=== PATIENT | female | born 1965 | race American Indian/Alaskan Native ===

== ENCOUNTER 2016-12-23 10:57 | Outpatient (CLI) | payer MEDICAID ==
--- NOTE | 2016-12-23 13:15 | Mammography Report ---
BILATERAL MAMMOGRAM with CAD: HISTORY: Cancer screening. Comparison is made to a study on December 11, 2014. FINDINGS: The breast tissue is heterogeneously dense, which could obscure detection of small masses (approximately 50%-75% glandular). No mass, distortion, suspicious calcification, or skin change is seen. IMPRESSION: Negative mammogram. There is no mammographic evidence of malignancy. RECOMMENDATION: Follow-up per ACS guidelines. BI-RADS CATEGORY: 1 = Negative ACR BI-RADS MAMMOGRAPHIC CODES: 0 = Needs additional imaging evaluation; 1 = Negative; 2 = Benign; 3 = Probably benign; 4 = Suspicious; 5 = Malignant; 6 = Known biopsy-proven malignancy COMMENT: 1. Dense breast tissue, i.e., adenosis, fibrocystic changes, etc., may obscure an underlying neoplasm. 2. Approximately 10% of cancers are not detected with mammography. 3. A negative mammography report should not delay biopsy if a clinically suspicious mass is present. COMMENT: Patient follow-up letters are generated in [employer].
== END 2016-12-23 10:58 | disposition home or self-care (01) ==
LOC: SPVWC 10:57
PROVIDERS: ATTEND Internal Medicine Hematology & Oncology
DX: Z12.31 Encounter for screening mammogram for malignant neoplasm of breast (principal)
CPT/HCPCS: 77067; G0202

== ENCOUNTER 2017-03-04 08:51 | Emergency (ER) | payer MEDICAID ==
--- NOTE | 2017-03-04 09:42 | Emergency Department Report ---
HPI - General Chief Complaint: Upper Respiratory Infection Time Seen by Provider: 03/04/17 09:06 - HPI HPI: She is a 51-year-old female presents complaining of intermittent in dry cough that started 02/23/2017 is now resolved . Patient states she's been taking cough medicine and has given her some relief. Patient complains of left flank pain. Patient states pain is intermittently comes and goes as event for the past several months. Patient states she has been neglecting the pain. Patient states pain in March, so twice a month and is a throbbing pain, localized to lower to mid back left side. Patient states she does not have a primary care physician. Patient denies fever/chills/nausea/vomiting/dysuria/chest pain/shortness of breath/vaginal discharge/vaginal bleeding ED Past Medical Hx - Past Medical History Previous Medical History?: Yes Hx of Cancer: Yes (skin) Additional medical history: Anxiety, Chemotherapy - Surgical History Past Surgical History?: Yes Additional Surgical History: Removal of skin cancer - Social History Smoking Status: Never Smoker Substance Use Type: Prescribed - Medications Home Medications: Home Medications Medication Instructions Recorded Confirmed Last Taken Type Cyclobenzaprine HCl [Flexeril 5 MG 5 mg PO QHS #14 tablet 03/04/17 Unknown Rx TAB] Ibuprofen [Motrin] 600 mg PO Q8H PRN #30 tablet 03/04/17 Unknown Rx guaiFENesin [Robitussin] 200 mg PO Q6HR #12 tablet 03/04/17 Unknown Rx ED Review of Systems ROS: Stated complaint: COUGHING / RAPID HEART RATE Other details as noted in HPI Constitutional: denies: chills, fever Eyes: denies: eye pain, eye discharge, vision change ENT: denies: ear pain, throat pain Respiratory: denies: cough, shortness of breath, wheezing Cardiovascular: denies: chest pain, palpitations Endocrine: no symptoms reported Gastrointestinal: denies: abdominal pain, nausea, diarrhea Genitourinary: denies: urgency, dysuria, discharge Musculoskeletal: denies: back pain, joint swelling, arthralgia Skin: denies: rash, lesions Neurological: denies: headache, weakness, paresthesias Psychiatric: denies: anxiety, depression Hematological/Lymphatic: denies: easy bleeding, easy bruising Physical Exam - Physical Exam Vital Signs: Vital Signs 03/04/17 08:58 Temperature 97.5 F L Pulse Rate 71 Respiratory 18 Rate Blood Pressure 131/73 O2 Sat by Pulse 100 Oximetry Physical Exam: GENERAL: Alert and oriented x3, no apparent distress, Normal Gait, atraumatic. HEAD: Head is normocephalic and a-traumatic. NECK: Supple. Non edematous, No carotid bruits. No lymphadenopathy or thyromegaly. LUNGS: Symetrical with respiration, No wheezing, no rales or crackles, CTAB. HEART: S1, S2 present, regular rate and rhythm without murmur, no rubs, no gallops. ABDOMEN: No organomegaly was noted,Positive bowel sounds, soft, and non- distended. . Nontender to palpation on all Quadrants, NO CVA tenderness. NEUROLOGIC: No focal Deficit, Cranial nerves II through XII are grossly intact. No loss of sensation, No facial droop, Negative rhomberg. PSYCHIATRIC: Mood is congruent with affect, denies suicidal or homicidal ideations. SKIN: Warm and dry, No lesions, No ulceration or induration present. ED Course Vital Signs 03/04/17 08:58 Temperature 97.5 F L Pulse Rate 71 Respiratory 18 Rate Blood Pressure 131/73 O2 Sat by Pulse 100 Oximetry ED Medical Decision Making - Lab Data Result diagrams: 03/04/17 09:47 03/04/17 09:47 - Medical Decision Making 51-year-old female presents with bronchitis and intermittent back pain. ED course: CBC, BMP, UA, UPT ordered. All labs within normal limits. Discussed labs results the patient. Discussed mildly elevated glucose. Discussed the patient will follow-up with a clicker operator as referred for STD screening and woman health exam. Discussed with patient follow-up with family care doctor for further management and follow-up. Vital signs are stable. Patient is in no acute or respiratory distress. Patient has no acute symptoms. Patient understands all instructions given today and complies to follow-up with necessary providers. - Differential Diagnosis 1 bronchitis 2. UTI 3. Myalgia 4.URI Critical care attestation.: If time is entered above; I have spent that time in minutes in the direct care of this critically ill patient, excluding procedure time. ED Disposition Clinical Impression: Bronchitis, Myalgia Disposition: DISCHARGED TO HOME OR SELFCARE Is pt being admited?: No Does the pt Need Aspirin: No Condition: Stable Instructions: Chronic Bronchitis (ED), Trigger Point Pain (ED), Musculoskeletal Pain (ED) Prescriptions: Cyclobenzaprine HCl [Flexeril 5 MG TAB] 5 mg PO QHS #14 tablet guaiFENesin [Robitussin] 200 mg PO Q6HR #12 tablet Ibuprofen [Motrin] 600 mg PO Q8H PRN #30 tablet PRN Reason: Pain Referrals: PRIMARY CARE, [Primary Care Provider] - 3-5 Days NENO LUNA MD [Referring] - 3-5 Days DOTTIE GARCIA MD [Referring] - 3-5 Days MUSTAPHA JIMENES MD [Referring] - 3-5 Days PADMINI MARTIN MD [Referring] - 3-5 Days [facility] [Outside] - 3-5 Days [facility] [Outside] - 3-5 Days [facility] [Outside] - 3-5 Days Forms: Work/School Release Form(ED) Time of Disposition: 10:48
[2017-03-04 09:53] LABS: Bilirubin,Urine NEG (Negative); Blood,Urine NEG (Negative); Ketones,Urine NEG (Negative); Leukocyte Esterase,Urine NEG (Negative); Mucus,Urine FEW /HPF; Nitrite,Urine NEG (Negative); Protein,Urine <15 mg/dL mg/dL (Negative); Urobilinogen,Urine < 2.0 mg/dL (<2.0)
[2017-03-04 09:56] LABS: Hematocrit 36.7 % (30.3-42.9); Hemoglobin 11.3 gm/dl (10.1-14.3); Mean Corpuscular HGB Conc 31 % (30-34); Mean Corpuscular Hemoglobin 26 pg (28-32); Mean Corpuscular Volume 83 fl (79-97); Platelet Count 227 K/mm3 (140-440); Red Blood Count 4.41 M/mm3 (3.65-5.03); Red Cell Distribution Width 13.3 % (13.2-15.2); White Blood Count 4.6 K/mm3 (4.5-11.0)
[2017-03-04 10:15] LABS: Anion Gap 16 mmol/L; BUN/Creatinine Ratio 12.85; Blood Urea Nitrogen 9 mg/dL (7-17); Calcium 8.7 mg/dL (8.4-10.2); Carbon Dioxide 27 mmol/L (22-30); Chloride 101.6 mmol/L (98-107); Glucose 118 mg/dL (65-100); Potassium 4.1 mmol/L (3.6-5.0); Sodium 140 mmol/L (137-145)
[2017-03-04 11:07] VITALS: BP 128/74
== END 2017-03-04 11:07 | disposition home or self-care (01) ==
LOC: ED 08:51
DX: J40 Bronchitis, not specified as acute or chronic (principal); M79.1 Myalgia; Z85.828 Personal history of other malignant neoplasm of skin
CPT/HCPCS: 36415; 80048; 81001; 81025; 85027; 99283

== ENCOUNTER 2018-12-24 08:43 | Outpatient (CLI) | payer MEDICAID ==
--- NOTE | 2019-01-25 15:53 | Magnetic Resonance Report ---
FINAL REPORT Bilateral Breast MRI with and without contrast History: Breast cancer. Technique: Axial T1, axial T2 fat sat, axial DWI, sagittal T2 bilateral, axial dynamic imaging before and after 15 cc of MultiHance administration. Subtraction images were obtained. Comparisons: 12/23/2016, 09/27/2018 and 10/26/2018. No pathology reports have been submitted. Breast composition: Heterogeneously dense. Background parenchymal enhancement: Mild. Findings: Right breast: No suspicious enhancement is seen in the right breast. The right axilla is unremarkable . Left breast: A microclip is identified in the left 12-1 o'clock mid breast corresponding to biopsy-pr oven malignancy. This is consistent with an irregular enhancing mass measuring 2.7 x 2.4 x 2.0 cm (AP , craniocaudal and transverse dimensions). No other suspicious enhancement is seen in the left breast . The left axilla has at least one lymph node which is enlarged, suspicious for malignant involvement . The left breast skin, nipple and pectoralis appear normal. Impression: Known biopsy proven malignancy (BI-RADS 6) Recommendation: Management for biopsy-proven unifocal left breast malignancy with maximum visible dim ension of 2.7 cm. Additionally, at least one enlarged left axillary lymph node suspicious for maligna nt involvement.
== END 2018-12-24 08:44 | disposition home or self-care (01) ==
LOC: SPVIMAG 08:43
PROVIDERS: ATTEND Surgery
DX: C50.412 Malignant neoplasm of upper-outer quadrant of left female breast (principal)
CPT/HCPCS: A9577; C8908; 77049

== ENCOUNTER 2019-01-03 10:20 | Outpatient (CLI) | payer MEDICAID ==
--- NOTE | 2019-01-03 13:22 | Ultrasound Report ---
ULTRASOUND GUIDED NEEDLE CORE BIOPSY OF A LEFT AXILLARY LYMPH NODE WITH CLIP PLACEMENT : 01/03/19 10:20:00 CLINICAL: Newly diagnosed left breast cancer and a suspicious left axillary lymph node by MRI. COMPARISON :12/24/18 MRI FINDINGS: The procedure was explained to the patient and informed consent was obtained. Ultrasound demonstrated a 1.5 cm left axillary lymph node with a maximum cortical thickness of 3 mm which appears to correlate with the lymph node described in MRI report. Several smaller lymph nodes with less cortical thickness. The skin in the axilla was prepped with Betadine and anesthetized with 1% lidocaine. Ultrasound guided needle core biopsy of the lymph node was performed through a small dermatotomy using 2% lidocaine with epinephrine for deep anesthesia and a 18-gauge Achieve biopsy device. 2 samples were obtained and placed in formalin. A clip was deployed within the lymph node. Hemostasis was achieved with minimal pressure and a sterile dressing was applied. The patient tolerated the procedure well and there were no apparent complications. She was discharged in good condition and was given instructions for wound care and followup. IMPRESSION: Uncomplicated ultrasound-guided needle core biopsy of a left axillary lymph node with clip placement.
== END 2019-01-03 10:21 | disposition home or self-care (01) ==
LOC: SPVWC 10:20
PROVIDERS: ATTEND Surgery
DX: C77.3 Secondary and unspecified malignant neoplasm of axilla and upper limb lymph nodes (principal); C50.912 Malignant neoplasm of unspecified site of left female breast; Z79.899 Other long term (current) drug therapy
CPT/HCPCS: 38505; 76942; 88305

== ENCOUNTER 2019-02-08 10:06 | Day surgery (SDC) | payer MEDICAID ==
[~2019-02-08 10:06] MED LIST: ANCEF/STERILE WATER 2 GM/20 ML 2 GM/20 ML SYRINGE IV NR; HEPARIN 10,000 UNITS/10 ML IV ONE; ceFAZolin 2 GM in NACL 0.9% 100 ML IV ONE
[2019-02-08] MEDS ORDERED: LACTATED RINGERS 1,000 ML ONE (10:52)
[2019-02-08] MEDS ORDERED: VERSED ONE (10:54)
--- NOTE | 2019-02-08 10:54 | Anesthesia Consultation ---
Anesthesia Consult and Med Hx Date of service: 02/08/19 - Airway Anesthetic Teeth Evaluation: Good ROM Head & Neck: Adequate Mental/Hyoid Distance: Adequate Mallampati Class: Class II Intubation Access Assessment: Probably Good - Pulmonary Exam CTA: Yes - Cardiac Exam Cardiac Exam: RRR - Pre-Operative Health Status ASA Pre-Surgery Classification: ASA2 Proposed Anesthetic Plan: MAC - Central Nervous System Hx Psychiatric Problems: No - Other Systems Hx Alcohol Use: No Hx Substance Use: No Hx Cancer: Yes
[2019-02-08] MEDS ORDERED: DILAUDID IV PRN (10:55)
--- NOTE | 2019-02-08 10:55 | Anesthesia Day of Surgery ---
Anesthesia Day of Surgery - Day of Surgery Patient Examined: Yes Patient H&P Reviewed: Yes Patient is NPO: Yes Beta Blockers: No Cardiac Clearance: No Pulmonary Clearance: No David's Test: N/A
[2019-02-08] MEDS ORDERED: VERSED IV NR (11:00)
[2019-02-08] MEDS ORDERED: LACTATED RINGERS 1,000 ML IV SCH (11:00)
[2019-02-08] MEDS ORDERED: MARCAINE 0.25% INFILTRATI ONE ×3 (11:12→12:12)
[2019-02-08] MEDS ORDERED: XYLOCAINE 1% 20 mL ONE (11:12)
[2019-02-08] MEDS ORDERED: HEPARIN 10,000 UNITS/10 ML ONE (11:13)
[2019-02-08] MEDS ORDERED: NACL 0.9% 100 ML ONE (11:13)
[2019-02-08] MEDS ORDERED: XYLOCAINE MPF 2% ONE (11:33)
[2019-02-08] MEDS ORDERED: SUBLIMAZE ONE (11:34)
[2019-02-08] MEDS ORDERED: DIPRIVAN 10 MG/ML IV ONE (11:34)
[2019-02-08] MEDS ORDERED: XYLOCAINE 1% 20 mL INFILTRATI ONE ×2 (12:12)
[2019-02-08] MEDS ORDERED: HEPARIN 10,000 UNITS/10 ML IV ONE ×2 (12:21→12:45)
[2019-02-08] MEDS ORDERED: NACL 0.9% IV ONE (12:21)
--- NOTE | 2019-02-08 13:10 | Short Stay Summary ---
Short Stay Documentation Date of service: 02/08/19 - History Principal diagnosis: left breast cancer H&P: obtained from office - Allergies and Medications Current Medications: Allergies No Known Allergies Allergy (Verified 02/03/19 17:24) Home Medications Medication Instructions Recorded Confirmed Last Taken Type No Known Home Medications [No 02/03/19 02/03/19 Unknown History Reported Home Medications] Active Medications Hydromorphone HCl (Dilaudid) 0.25 mg IV Q10MIN PRN PRN Reason: Pain, Moderate (4-6) Stop: 02/08/19 20:00 Cefazolin Sodium (Ancef/Sterile Water 2 Gm/20 Ml) 2 gm in 20 mls @ 80 mls/hr IV PREOP NR Stop: 02/08/19 16:00 Lactated Ringer's (Lactated Ringers) 1,000 mls @ 75 mls/hr IV DIRECT SHELIA Last Admin: 02/08/19 11:00 Dose: 75 mls/hr Documented by: Midazolam HCl (Versed) 2 mg IV PREOP NR Stop: 02/08/19 23:59 Last Admin: 02/08/19 11:48 Dose: 2 mg Documented by: - Brief post op/procedure progress note Date of procedure: 02/08/19 Pre-op diagnosis: left breast cancer Post-op diagnosis: same Procedure: right subclavian port placement with ultrasound guidance, fluoroscopy Anesthesia: GETA, local Findings: good placement of port without PTX on post op CXR Surgeon: JOZEF MENON Estimated blood loss: minimal Pathology: none Condition: stable - Hospital course Hospital course: Pt observed in PACU and discharged to home in stable condition when criteria met - Disposition Condition at discharge: Good Disposition: DC-01 TO HOME OR SELFCARE Short Stay Discharge Plan Activity: no restrictions Diet: regular Wound: open to air Additional Instructions: SEE PRINTED DISCHARGE INSTRUCTIONS Follow up with: SHADY MARSHALL MD [Primary Care Provider] - 7 Days JOZEF MENON DO [Staff Physician] - 14 Days Prescriptions: HYDROcodone/APAP 5-325 [[place] 5/325] 1 each PO Q6HR PRN #20 tablet PRN Reason: Pain
--- NOTE | 2019-02-08 13:33 | Fluoroscopy Report ---
FLUOROSCOPY CENTRAL VENOUS DEVICE PLACEMENT HISTORY: Breast cancer, Csiruy-v-Xppe insertion A right subclavian Bwxrsy-f-Dsfx has been inserted which terminates in the low right atrium. AP view of the chest demonstrates a normal mediastinal and cardiac contour with clear lungs and normal bony and soft tissue structures. IMPRESSION: Ysqubq-q-Wbgc insertion. No evidence for pneumothorax.
[2019-02-08 13:54] VITALS: BP 114/70
[2019-02-08] MEDS ORDERED: NORCO 5/325 PO PRN (13:55)
--- NOTE | 2019-02-09 16:51 | Operative Report ---
PREOPERATIVE DIAGNOSIS: Left breast cancer. POSTOPERATIVE DIAGNOSIS: Left breast cancer. PROCEDURE: Right subclavian port placement with ultrasound guidance, fluoroscopy. ANESTHESIA: General endotracheal anesthesia, local. FINDINGS: Good placement of port without pneumothorax on postop chest x-ray. SURGEON: Tonia Hughes DO. ESTIMATED BLOOD LOSS: Minimal. PATHOLOGY: None. CONDITION: Stable. DISPOSITION: To PACU. HISTORY OF PRESENT ILLNESS AND INDICATIONS: The patient is a 53-year-old female with a history of right-sided breast cancer, status post chemotherapy and excision who presented to the surgery clinic for evaluation for port placement for newly diagnosed left breast cancer. The patient is currently under the care of Oncology as well as breast surgery and was referred for port placement to start chemotherapy. All risks, benefits, alternatives of surgery were discussed with the patient and questions answered. Consent was obtained. DESCRIPTION OF PROCEDURE: The patient was identified in the preoperative area and taken back to the operating room and placed on the operating table in supine position. After anesthesia was induced, bilateral arms were tucked with all bony prominences padded. The bilateral upper chest and neck were prepped and draped in the usual sterile fashion and time-out performed. Using ultrasound, the right subclavian vein was identified and local anesthetic was infiltrated into the skin and subcutaneous tissue over the intended puncture site. The subclavian vein was accessed on the second stick and there was return of dark red nonpulsatile blood. The standard wire, which comes in the kit was attempted to be threaded; however, could not be adequately positioned into the right atrium even under fluoroscopic guidance. Therefore, the wire and needle were then removed. Another attempt was then made to access the subclavian vein using ultrasound guidance. The vein was accessed on the first stick and there was return of dark red nonpulsatile blood. A Glidewire was then threaded through the needle and positioning was confirmed using fluoroscopy. The needle was then removed and the wire affixed to the drapes using hemostat. Local anesthetic was then infiltrated into the skin and subcutaneous tissue at the intended incision site in the right upper chest. A 3 cm incision was made using a 15 blade and dissection was carried down through the skin and subcutaneous tissue using Bovie electrocautery. Once the prepectoral fascia was encountered, a subcutaneous pocket was created using a combination of blunt dissection as well as electrocautery. Hemostasis was ensured along the way. A tunneler attached to the catheter was then brought from the pocket to the wire underneath the skin and the dilator catheter sheath then inserted over the wire, and using fluoroscopic guidance. The dilator was then removed and the catheter threaded through the break-away sheath while the sheath was broken away. The catheter was then pulled back under direct visualization until it was seen in the right atrium. The catheter laid flush under the skin and was then cut to size in the usual fashion and the port was assembled. The port was tested with heparinized saline and did return blood easily and flushed easily. The port was then sutured to the prepectoral fascia using 2-0 Vicryl sutures. The wound was irrigated and checked for hemostasis, which was carefully ensured. The deep dermal layer was then closed with interrupted 3-0 Vicryl sutures. The skin was closed with 4-0 Monocryl subcuticular stitches and skin glue. At the end of the case, all sponge, instrument, sharp counts were correct x 2. A postoperative chest x-ray was performed in the OR, which showed good positioning of the port without pneumothorax. There was no ectopy on the manager of financial. At the end of the case. The patient was awoken from anesthesia, extubated, and taken to PACU in stable condition. JOB# [id number] TARA/ANGELICA
== END 2019-02-08 10:07 | disposition home or self-care (01) ==
LOC: OR 10:06
PROVIDERS: ATTEND Surgery
DX: C50.412 Malignant neoplasm of upper-outer quadrant of left female breast (principal); Z79.899 Other long term (current) drug therapy; Z98.890 Other specified postprocedural states
CPT/HCPCS: 36561; 76937; 77001; 81025; C1769; C1788; J0690; J1644; J2250; J2704; J3010; J7120

== ENCOUNTER 2019-07-07 10:00 | Outpatient (CLI) | payer MEDICAID ==
--- NOTE | 2019-07-07 11:08 | XRay Report ---
CHEST 2 VIEWS INDICATION: Breast cancer. Upper left back pain. COMPARISON: None FINDINGS: Support devices: A right subclavian Ztmbbn-z-Ggdu terminates in the superior right atrium. Heart: Within normal limits. Lungs/pleura: No acute air space or interstitial disease. No pneumothorax. Additional findings: Borderline osteopenia. No osseous abnormality detected. IMPRESSION: Unremarkable chest films. Signer Name: Kyler Roy Jr, MD Signed: 07/07/2019 11:03 AM Workstation Name: [id number]
== END 2019-07-07 10:01 | disposition home or self-care (01) ==
LOC: SPVIMAG 10:00
PROVIDERS: ATTEND Internal Medicine Hematology & Oncology
DX: C50.211 Malignant neoplasm of upper-inner quadrant of right female breast (principal); C50.212 Malignant neoplasm of upper-inner quadrant of left female breast
CPT/HCPCS: 71046

== ENCOUNTER 2019-07-26 10:50 | Outpatient (CLI) | payer MEDICAID ==
--- NOTE | 2019-07-26 12:48 | Mammography Report ---
BILATERAL DIGITAL DIAGNOSTIC MAMMOGRAM WITH CAD LEFT COMPLETE BREAST ULTRASOUND INDICATION: Known left breast cancer receiving neoadjuvant chemotherapy. TECHNIQUE: Digital bilateral mammographic imaging was performed. Complete ultrasound of all four (4) quadrants was performed. This examination was interpreted with the benefit of Computer-Aided Detecti on (CAD) analysis. COMPARISON: 09/27/2018 and 10/26/2018 FINDINGS: Breast Density: Heterogeneously dense, which may obscure small masses. The known left upper outer cancer is an irregular spiculated mass with a biopsy clip. The mass is sma ller compared to the prior exam. No other mass. No architectural distortion or suspicious calcificati ons. The right breast is negative. Ultrasound Findings: Complete sonographic evlauation of all 4 quadrants and retroareolar region was p erformed. Sound demonstrated an irregular solid hypoechoic mass at 12:00 5 cm from the nipple measu ring 1.8 x 1.7 x 2.1 cm compared to a maximum diameter of 2.4 cm on the last exam. IMPRESSION: A partial response to chemotherapy. BI-RADS Category 6: Known Biopsy-Proven Malignancy. A "normal" or negative report should not discourage follow up or biopsy of a clinically significant f inding. A written summary of these findings will be mailed to the patient. The patient will be entered into a mammography reporting system which will generate a reminder letter for the patient's next appointmen t at the appropriate interval. FURTHER INFORMATION: According to the [employer], yearly mammograms are recommend ed starting at age 40 and continuing as long as a woman is in good health. Breast MRI is recommended for women with an approximately 20-25% or greater lifetime risk of breast cancer, including women wi th a strong family history of breast or ovarian cancer and women who have been treated for Hodgkin's disease. Signer Name: Calin Arreguin MD Signed: 07/26/2019 12:44 PM Workstation Name: [id number]
--- NOTE | 2019-07-28 08:20 | Ultrasound Report ---
BILATERAL DIGITAL DIAGNOSTIC MAMMOGRAM WITH CAD LEFT COMPLETE BREAST ULTRASOUND INDICATION: Known left breast cancer receiving neoadjuvant chemotherapy. TECHNIQUE: Digital bilateral mammographic imaging was performed. Complete ultrasound of all four (4) quadrants was performed. This examination was interpreted with the benefit of Computer-Aided Detectio n (CAD) analysis. COMPARISON: 09/27/2018 and 10/26/2018 FINDINGS: Breast Density: Heterogeneously dense, which may obscure small masses. The known left upper outer cancer is an irregular spiculated mass with a biopsy clip. The mass is sma ller compared to the prior exam. No other mass. No architectural distortion or suspicious calcificati ons. The right breast is negative. Ultrasound Findings: Complete sonographic evlauation of all 4 quadrants and retroareolar region was p erformed. Sound demonstrated an irregular solid hypoechoic mass at 12:00 5 cm from the nipple measuri ng 1.8 x 1.7 x 2.1 cm compared to a maximum diameter of 2.4 cm on the last exam. IMPRESSION: A partial response to chemotherapy. BI-RADS Category 6: Known Biopsy-Proven Malignancy. A "normal" or negative report should not discourage follow up or biopsy of a clinically significant f inding. A written summary of these findings will be mailed to the patient. The patient will be entered into a mammography reporting system which will generate a reminder letter for the patient's next appointmen t at the appropriate interval. FURTHER INFORMATION: According to the [employer], yearly mammograms are recommende d starting at age 40 and continuing as long as a woman is in good health. Breast MRI is recommended f or women with an approximately 20-25% or greater lifetime risk of breast cancer, including women with a strong family history of breast or ovarian cancer and women who have been treated for Hodgkin's di sease. Signer Name: Calin Arreguin MD Signed: 07/28/2019 8:16 AM Workstation Name: [id number]
== END 2019-07-26 10:51 | disposition home or self-care (01) ==
LOC: SPVWC 10:50
PROVIDERS: ATTEND Surgery
DX: Z51.11 Encounter for antineoplastic chemotherapy (principal); C50.412 Malignant neoplasm of upper-outer quadrant of left female breast
CPT/HCPCS: 77066

== ENCOUNTER 2019-08-31 08:58 | Day surgery (SDC) | payer MEDICAID ==
[~2019-08-31 08:58] MED LIST changes: -ANCEF/STERILE WATER 2 GM/20 ML 2 GM/20 ML SYRINGE IV NR; -HEPARIN 10,000 UNITS/10 ML IV ONE; -ceFAZolin 2 GM in NACL 0.9% 100 ML IV ONE; +ceFAZolin/Water 2 GM/20 ML 2 GM/20 ML SYRINGE IV NR
[2019-08-31] MEDS ORDERED: fentaNYL 100 MCG/2 ML INJ IV ONE (10:08)
[2019-08-31] MEDS ORDERED: fentaNYL 100 MCG/2 ML INJ IV PRN (10:08)
[2019-08-31] MEDS ORDERED: HYDROmorphone 1 MG/1 ML INJ IV PRN (10:08)
[2019-08-31] MEDS ORDERED: ONDANSETRON 4 MG/2 ML INJ IV PRN (10:08)
--- NOTE | 2019-08-31 10:10 | Anesthesia Day of Surgery ---
Anesthesia Day of Surgery - Day of Surgery Patient Examined: Yes Patient H&P Reviewed: Yes Patient is NPO: Yes
--- NOTE | 2019-08-31 10:11 | Anesthesia Consultation ---
Anesthesia Consult and Med Hx Date of service: 08/31/19 - Airway Anesthetic Teeth Evaluation: Good ROM Head & Neck: Adequate Mental/Hyoid Distance: Adequate Mallampati Class: Class II Intubation Access Assessment: Good - Pre-Operative Health Status ASA Pre-Surgery Classification: ASA2 Proposed Anesthetic Plan: General Nerve Block: PEC - Pulmonary Hx Smoking: No (States she can climb two flights of stairs) - Central Nervous System Hx Psychiatric Problems: No - Hematic Hx Anemia: Yes - Other Systems Hx Alcohol Use: No Hx Substance Use: No Hx Cancer: Yes
[2019-08-31] MEDS ORDERED: LACTATED RINGERS 1,000 ML ONE (10:16)
[2019-08-31] MEDS ORDERED: ACETAMINOPHEN 325 MG TAB PO ONE (11:00)
[2019-08-31] MEDS ORDERED: LACTATED RINGERS 1,000 ML IV SCH (11:00)
[2019-08-31] MEDS ORDERED: CELECOXIB 200 MG CAP PO NR (11:00)
[2019-08-31] MEDS ORDERED: GABAPENTIN 300 MG CAP PO NR (11:00)
[2019-08-31] MEDS ORDERED: MIDAZOLAM 2 MG/2 ML INJ IV NR (11:00)
[2019-08-31] MEDS ORDERED: BUPIVACAINE-EPINEPHRINE/PF 0.25%-1:200,000 (30 ML) VIAL INFILTRATI ONE (13:53)
--- NOTE | 2019-08-31 16:23 | Operative Report ---
Operative Report Operative Report: Operative Report: August 31, 2019 Preoperative diagnosis: Left breast cancer of the upper outer quadrant Postoperative diagnosis: Same Procedure: Left partial mastectomy of the upper outer quadrant and SLNB Surgeon: Ramila Bowden MD [employer] Worker: Miguel Thurman Anesthesia: General Findings: Left breast mass within radiograph specimen; x 2 SLNs with one SLN previously biopsied Complications: None EBL: 50 cc Disposition: PACU in good condition Indications for operative procedure: This is a 53 year old lady with newly diagnosed right breast cancer of the upper outer and upper inner quadrant, Stage II [id number] ER/SC positive; personal history of Stage II right breast cancer 10- 11 years ago. She completed neoadjuvant chemotherapy. Patient wanted to proceed with breast conservation. She understands the role of adjuvant radiation therapy. She wished to proceed with the above procedure. Recommendations from tumor conference were as above and to await final pathology of SLN, patient understands the possibility of proceeding with an ALND at a separate surgery pending final pathology of SLNs given prior positive lymph node at time of diagnosis. Procedure in detail: Anesthesia placed left pectoral block. Patient was then taken to the operating room. Gen. anesthesia was administered. The left nipple was injected with radioisotope and 1 cc of methylene blue dye with saline. Left breast and axilla were prepped and draped in the normal sterile operative fashion. Timeout was performed. Gamma probe was inserted into the axilla. The area of hot spot was identified. A left axillary incision was made with a 15 blade knife with dissection taken down to the subcutaneous tissues. The axillary fascia was opened with the Bovie cautery. 2 SLNs were identified, one SLN with biopsy clip noted from prior biopsy. All remaining counts were less than 10% of the highest count. Lymph node was sent to pathology for permanent processing. Hemostasis was obtained in the right axillary cavity. Axillary cavity was appropriately irrigated and suctioned. Hemostasis was noted. Axillary fascia was approximated and closed using interrupted 3-0 Vicryl and the skin brought together and closed using a running 4-0 Monocryl followed by skin affix. Attention was then taken towards the left breast. Ultrasound was used to tristen the area of known cancer at the 1/2:00 position, palpable cancer of 2-3 cm. A breast incision was made with a 15 blade knife and dissection taken down to subcutaneous tissues. First began raising of the superior flap with dissection take down posteriorly towards the chest wall, followed by raising of the medial flap raised and dissection taken down towards the pectoralis muscle, followed by raising of the superior and inferior flaps with dissection taken down posteriorly to the pectoralis muscle. The breast area of concern was appropriately removed posteriorly from the pectoralis muslce with the aid of the Bovie cautery. Specimen was marked and then sent to pathology and radiology; radiograph specimen with mass and clip present. Breast cavity was irrigated and hemostasis was obtained. The posterior deep breast tissues were approximated and closed using interrupted 3-0 Vicryl. The subcutaneous tissues were approximated and closed using interrupted 3-0 Vicryl followed by closing of the skin with a running 4-0 Monocryl and skin affix. The patient tolerated surgery very well and she was awaken from anesthesia without any complication and transported to PACU in good condition.
[2019-08-31] MEDS ORDERED: GLYCOPYRROLATE 0.4 MG/2 ML INJ ONE (16:24)
[2019-08-31] MEDS ORDERED: PHENYLEPHRINE/NS 1,000 MCG/10 ML SYRINGE (OR USE) IV ONE (16:24)
[2019-08-31] MEDS ORDERED: ROCURONIUM 50 MG/5 ML INJ IV ONE (16:24)
[2019-08-31] MEDS ORDERED: dexAMETHasone 20 MG/5 ML VIAL ONE (16:24)
[2019-08-31] MEDS ORDERED: LIDOCAINE MPF (2%) 20 MG/1 ML VIAL 5 ML ONE (16:24)
[2019-08-31] MEDS ORDERED: ONDANSETRON 4 MG/2 ML INJ ONE (16:24)
[2019-08-31] MEDS ORDERED: NEOSTIGMINE 10MG/10 ML INJ MDV ONE (16:24)
[2019-08-31] MEDS ORDERED: fentaNYL 250 MCG/5 ML INJ ONE (16:24)
[2019-08-31] MEDS ORDERED: PROPOFOL 200 MG/20 ML VIAL IV ONE (16:25)
[2019-08-31] MEDS ORDERED: METHYLENE BLUE 50 MG/10 ML AMP IV ONE (16:45)
[2019-08-31] MEDS ORDERED: SODIUM CHLORIDE 0.9% P/F 10 ML VIAL INFILTRATI ONE (16:45)
[2019-08-31] MEDS ORDERED: ePHEDrine SULFATE 50 MG/1 ML INJ ONE (16:55)
[2019-08-31] MEDS ORDERED: WATER FOR IRRIG STERILE 1,500 ML BOTTLE IR ONE (17:34)
--- NOTE | 2019-08-31 19:26 | Short Stay Summary ---
Short Stay Documentation Date of service: 08/31/19 - History H&P: obtained from office - Allergies and Medications Current Medications: Allergies No Known Allergies Allergy (Verified 08/25/19 11:15) Home Medications Medication Instructions Recorded Confirmed Last Taken Type HYDROcodone/APAP 5-325 [[place] 1 each PO Q6HR PRN #20 tablet 08/31/19 Unknown Rx 5/325] Active Medications Celecoxib (Celebrex) 200 mg PO PREOP NR Stop: 08/31/19 23:00 Last Admin: 08/31/19 10:50 Dose: 200 mg Documented by: Fentanyl (Sublimaze) 50 mcg IV Q5MIN PRN PRN Reason: Pain , Severe (7-10) Stop: 09/01/19 06:00 Gabapentin (Neurontin) 300 mg PO PREOP NR Stop: 08/31/19 23:00 Last Admin: 08/31/19 10:50 Dose: 300 mg Documented by: Hydromorphone HCl (Dilaudid) 0.5 mg IV Q10MIN PRN PRN Reason: Pain , Severe (7-10) Cefazolin Sodium (Ancef/Sterile Water 2 Gm/20 Ml) 2 gm in 20 mls @ 80 mls/hr IV PREOP NR; Protocol Stop: 08/31/19 23:00 Lactated Ringer's (Lactated Ringers) 1,000 mls @ 125 mls/hr IV DIRECT SHELIA Last Admin: 08/31/19 10:30 Dose: 125 mls/hr Documented by: Midazolam HCl (Versed) 2 mg IV PREOP NR Stop: 08/31/19 23:59 Last Admin: 08/31/19 14:03 Dose: 2 mg Documented by: Ondansetron HCl (Zofran) 4 mg IV ONCE PRN PRN Reason: Nausea And Vomiting - Brief post op/procedure progress note Date of procedure: 08/31/19 Pre-op diagnosis: Left breast cancer UOQ Post-op diagnosis: same Procedure: Left partial mastectomy with SLNB Findings: left partial mastectomy; x2 SLN with prior biopsied SLN; clip and mass present in radiograph specimen Surgeon: BHASKAR ARTIS Conductor/Brakeman: TANNER MCCLELLAND Estimated blood loss: 50-100ml Pathology: list (left partial mastectomy; x2 slns) Specimen disposition: to lab Condition: stable - Disposition Condition at discharge: Good Disposition: DC-01 TO HOME OR SELFCARE Short Stay Discharge Plan Activity: other (no heavy lifting) Diet: regular Wound: keep clean and dry (may shower in 48 hours; wear breast binder) Follow up with: SHADY MARSHALL MD [Primary Care Provider] - 7 Days BHASKAR ARTIS MD [Staff Physician] - 7 Days Prescriptions: HYDROcodone/APAP 5-325 [[place] 5/325] 1 each PO Q6HR PRN #20 tablet PRN Reason: Pain
[2019-08-31 20:51] VITALS: BP 115/73
--- NOTE | 2019-08-31 21:16 | Post Anesthesia Evaluation ---
- Post Anesthesia Evaluation Patient Participated: Yes Airway Patent: Yes Stable Respiratory Function: Yes Nausea/Vomiting: No Temp > 96.8F: Yes Pain Manageable: Yes Adequeate Hydration: Yes Anesthesia Complications: No Block Receding Appropriately: Not Applicable (block for post op analgesia)
--- NOTE | 2019-09-01 08:06 | XRay Report ---
LEFT SPECIMEN RADIOGRAPH HISTORY: Left breast cancer. COMPARISON: This 2018 FINDINGS/IMPRESSION: A spiculated mass with a biopsy clip is identified within the specimen. Excision of the known cancer. Signer Name: Calin Arreguin MD Signed: 09/01/2019 8:02 AM Workstation Name: [id number]
== END 2019-08-31 08:59 | disposition home or self-care (01) ==
LOC: OR 08:58
PROVIDERS: ATTEND Surgery
DX: C50.412 Malignant neoplasm of upper-outer quadrant of left female breast (principal); C77.9 Secondary and unspecified malignant neoplasm of lymph node, unspecified; Z79.899 Other long term (current) drug therapy; Z98.890 Other specified postprocedural states; Z86.2 Personal history of diseases of the blood and blood-forming organs and certain disorders involving the immune mechanism
CPT/HCPCS: 19301; 38525; 38792; 64450; 76098; 78800; 88307; 88342; A9541; J0690; J1100; J1170; J2250; J2370; J2405; J2704; J2710; J3010; J7120; Q9968; 88305; 88309; 88333

== ENCOUNTER 2019-10-12 07:01 | Observation (INO) | payer MEDICAID ==
[~2019-10-12 07:01] MED LIST changes: +WATER FOR IRRIG STERILE 1,500 ML BOTTLE IR ONE
--- NOTE | 2019-10-12 07:44 | Anesthesia Consultation ---
Anesthesia Consult and Med Hx Date of service: 10/12/19 - Airway Anesthetic Teeth Evaluation: Good ROM Head & Neck: Adequate Mental/Hyoid Distance: Adequate Mallampati Class: Class III Intubation Access Assessment: Possibly Difficult (previous easy LMA 4) - Pulmonary Exam CTA: Yes - Cardiac Exam Cardiac Exam: RRR - Pre-Operative Health Status ASA Pre-Surgery Classification: ASA2 Proposed Anesthetic Plan: General - Pulmonary Hx Smoking: No Hx Respiratory Symptoms: No - Cardiovascular System Hx Hypertension: No Hx Heart Attack/AMI: No - Central Nervous System CVA: No - Gastrointestinal Hx Gastroesophageal Reflux Disease: No - Endocrine Hx Renal Disease: No Hx Liver Disease: No Hx Insulin Dependent Diabetes: No Hx Non-Insulin Dependent Diabetes: No Hx Thyroid Disease: No - Hematic Hx Anemia: Yes - Other Systems Hx Cancer: Yes (breast ca; last chemo 6 months ago)
--- NOTE | 2019-10-12 07:44 | Anesthesia Day of Surgery ---
Anesthesia Day of Surgery - Day of Surgery Patient Examined: Yes Patient H&P Reviewed: Yes Patient is NPO: Yes
[2019-10-12] MEDS ORDERED: HYDROmorphone 1 MG/1 ML INJ IV PRN (07:45)
[2019-10-12] MEDS ORDERED: CELECOXIB 200 MG CAP PO NR (08:00)
[2019-10-12] MEDS ORDERED: GABAPENTIN 300 MG CAP PO NR (08:00)
[2019-10-12] MEDS ORDERED: LACTATED RINGERS 1,000 ML IV SCH ×2 (08:00→12:00)
[2019-10-12] MEDS ORDERED: MIDAZOLAM 2 MG/2 ML INJ IV NR (08:00)
[2019-10-12] MEDS ORDERED: HYDROmorphone 1 MG/1 ML INJ ONE (08:38)
[2019-10-12] MEDS ORDERED: PROPOFOL 200 MG/20 ML VIAL IV ONE (08:38)
[2019-10-12] MEDS ORDERED: LIDOCAINE MPF (2%) 20 MG/1 ML VIAL 5 ML ONE (08:39)
[2019-10-12] MEDS ORDERED: WATER FOR IRRIG STERILE 1,500 ML BOTTLE IR ONE ×2 (10:01→10:15)
[2019-10-12] MEDS ORDERED: PHENYLEPHRINE/NS 1,000 MCG/10 ML SYRINGE (OR USE) IV ONE (10:04)
[2019-10-12] MEDS ORDERED: ONDANSETRON 4 MG/2 ML INJ ONE (11:04)
[2019-10-12] MEDS ORDERED: ONDANSETRON 4 MG/2 ML INJ IV PRN (11:12)
[2019-10-12] MEDS ORDERED: ACETAMINOPHEN 325 MG TAB PO PRN (11:12)
[2019-10-12] MEDS ORDERED: METOCLOPRAMIDE 10 MG TAB PO PRN (11:12)
[2019-10-12] MEDS ORDERED: diphenhydrAMINE 25 MG CAP PO PRN (11:12)
[2019-10-12] MEDS ORDERED: MORPHINE 2 MG/1 ML INJ IV PRN (11:15)
[2019-10-12] MEDS ORDERED: MEPERIDINE 25 MG/1 ML INJ ONE (11:27)
--- NOTE | 2019-10-12 11:30 | Operative Report ---
Operative Report Operative Report: Operative Report: Date of Service: October 12, 2019 Preoperative diagnosis: Left breast cancer of the upper outer quadrant with positive left axillary lymph node Postoperative diagnosis: Same Procedure: Left axillary lymph node dissection Surgeon: Ramila Bowden M.D. Commissioning Editor: Kirsten Parry M.D. Anesthesia: General Findings: Left axillary lymph node dissection Complications: None Drains: 15 Hungarian drain Estimated blood loss: 50 cc Disposition: PACU in good condition Indications for operative procedure: This is a 53-year-old lady with stage II left breast cancer of the upper outer quadrant with positive axillary lymph node; IDCA grade 3 [id number] ER positive. She recently underwent a left partial mastectomy with SLNB with positive sentinel lymph node. She completed neoadjuvant chemotherapy and known positive axillary lymph node prior to chemotherapy and given lymph node was positive after neoadjuvant chemotherapy, recommendations were to proceed with an ALND. Patient also with a personal history of right breast cancer post partial mastectomy with SLNB and course of chemotherapy and radiation therapy as well. Genetic testing with no significant gene mutation. She wished to proceed with the above procedure. Procedure in detail: The patient was taken to the operating room and was placed supine. Gen. anesthesia was administered. The left breast and axilla was prepped and draped in the normal sterile operative fashion. Timeout was performed. A sk in incision was made using a 10 blade knife through the prior axillary incision for SLNB with lateral border of incision extended more cephalad. The subcutaneous tissues were opened with the bovie cautery and fat necrosis from recent surgery was present. First began opening of the axillary fascia and then sweeping down the axillary fat. The lattismus dorsi muscle was identified and followed superiorly and the tail of the pectoralis major muscle was identified followed by identifying the pectoralis minor. Then proceeded with identification of the axillary vein followed by identification of the thoracodorsal bundle and long thoracic nerve, while doing so sweeping down the axillary contents for specimen. Axillary lymph nodes were then removed from the above boundaries in a sweeping-like motion and also with the aid to the bovie cautery. The axillary lymph nodes from the dissection were sent to pathology. Axillary lymph nodes from level I and II were removed. Both nerves were identified and unharmed. Hemostasis was noted. The chest wall was irrigated and suctioned. A 15 Hungarian AJITH drain was then placed. The axillary fascia was approximated and closed using an interrupted 3-0 Vicryl followed by closing of the subcutaneous tissues with an interrupted 3-0 Vicryl. The skin was closed using a running 4-0 Monocryl followed by dermabond. She tolerated surgery very well and was awaken from anesthesia without any complications and then transported to PACU in good condition.
[2019-10-12] MEDS ORDERED: LACTATED RINGERS 1,000 ML ONE (11:49)
[2019-10-12] MEDS ORDERED: MEPERIDINE 25 MG/1 ML INJ IV PRN (12:00)
--- NOTE | 2019-10-12 13:23 | Post Anesthesia Evaluation ---
- Post Anesthesia Evaluation Patient Participated: Yes Airway Patent: Yes Stable Respiratory Function: Yes Nausea/Vomiting: No Temp > 96.8F: Yes Pain Manageable: Yes Adequeate Hydration: Yes Anesthesia Complications: No
[2019-10-12] MEDS: oxyCODONE /ACETAMINOPHEN 5-325MG TAB PO PRN (20:13)
[2019-10-12] MEDS: DOCUSATE SODIUM 100 MG CAP PO SCH (21:44)
[2019-10-13] MEDS: oxyCODONE /ACETAMINOPHEN 5-325MG TAB PO PRN ×2 (05:38→12:42)
--- NOTE | 2019-10-13 07:43 | Progress Note ---
Assessment and Plan This is a 53 year old lady with Stage II left breast cancer, IDCA grade 3, [id number] ER+. POD#1 left ALND. No acute events overnight. 1. Pain in good control. 2. Left axillary incision healing well, no hematoma. 3. OOB to hallway. 4. AJITH drain education. 5. D/C planning for today. Subjective Date of service: 10/13/19 Principal diagnosis: Stage II left breast cancer, [id number] ER+ Interval history: POD#1 left ALND Objective - Constitutional Vitals: Vital Signs - 12hr 10/12/19 10/12/19 10/13/19 20:13 20:46 01:22 Temperature 97.7 F 98.4 F Pulse Rate 90 75 Respiratory 18 18 14 Rate Blood Pressure 115/66 93/56 O2 Sat by Pulse 99 97 Oximetry 10/13/19 05:38 Temperature Pulse Rate Respiratory 18 Rate Blood Pressure O2 Sat by Pulse Oximetry General appearance: Present: no acute distress - EENT Eyes: EOM intact ENT: hearing intact, clear oral mucosa, dentition normal Ears: bilateral: normal - Neck Neck: supple - Respiratory Respiratory effort: normal - Breasts Breasts: other (left axillary inc c/d/i; no hematoma; AJITH drain to bulb suction) - Cardiovascular Rhythm: regular Extremities: no ischemia, pulses intact, pulses symmetrical, No edema, normal temperature, Full ROM - Gastrointestinal General gastrointestinal: Present: soft, non-tender, non-distended - Genitourinary Female genitourinary: deferred - Integumentary Integumentary: clear, warm, dry - Musculoskeletal Musculoskeletal: strength equal bilaterally - Neurologic Neurologic: moves all extremities - Psychiatric Psychiatric: appropriate mood/affect, intact judgment & insight, memory intact, cooperative Medications & Allergies - Medications Allergies/Adverse Reactions: Allergies No Known Allergies Allergy (Verified 10/07/19 14:24) Home Medications: Home Medications Medication Instructions Recorded Confirmed Last Taken Type HYDROcodone/APAP 5-325 [[place] 1 each PO Q6HR PRN #20 tablet 10/13/19 Unknown Rx 5/325] Active Medications: Generic Name Dose Route Start Last Admin Trade Name Freq PRN Reason Stop Dose Admin Acetaminophen 650 mg 10/12/19 11:12 Tylenol PO Q6H PRN Pain MILD(1-3)/Fever >100.5/BONNER Diphenhydramine HCl 25 mg 10/12/19 11:12 Benadryl PO Q8H PRN Itching Docusate Sodium 100 mg 10/12/19 22:00 10/12/19 21:44 Colace PO Not Given BID SHELIA Lactated Ringer's 1,000 mls @ 100 mls/hr 10/12/19 08:00 10/12/19 08:40 Lactated Ringers IV 100 mls/hr DIRECT SHELIA Administration Lactated Ringer's 1,000 mls @ 125 mls/hr 10/12/19 12:00 10/12/19 18:00 Lactated Ringers IV 125 mls/hr DIRECT SHELIA Administration Metoclopramide HCl 10 mg 10/12/19 11:12 Reglan PO Q6H PRN Nausea And Vomiting Morphine Sulfate 2 mg 10/12/19 11:15 Morphine IV Q4H PRN Pain, Moderate (4-6) Ondansetron HCl 4 mg 10/12/19 11:12 Zofran IV Q8H PRN N/V unrelieved by Reglan Oxycodone/Acetaminophen 1 tab 10/12/19 11:12 10/13/19 05:38 Percocet 5/325 PO 1 tab Q6H PRN Administration Pain, Moderate (4-6) Sodium Chloride 10 ml 10/12/19 11:12 Sodium Chloride Flush Syringe 10 Ml IV PRN PRN LINE FLUSH
[2019-10-13] MEDS: DOCUSATE SODIUM 100 MG CAP PO SCH (12:44)
[2019-10-13 13:25] VITALS: BP 113/71
== END 2019-10-13 14:45 | disposition home or self-care (01) ==
LOC: OR 07:01 → OB 11:12
PROVIDERS: ADMIT Surgery; ATTEND Surgery
DX: C50.412 Malignant neoplasm of upper-outer quadrant of left female breast (principal); Z85.3 Personal history of malignant neoplasm of breast; Z90.49 Acquired absence of other specified parts of digestive tract
CPT/HCPCS: 38525; 88307; 88341; 88342; 96374; G0378; J0690; J1170; J2175; J2250; J2370; J2405; J2704; J7120

== ENCOUNTER 2019-11-09 16:04 | Outpatient (CLI) | payer MEDICAID ==
--- NOTE | 2019-11-15 10:43 | Mammography Report ---
BONE DEXA CLINICAL: History of breast cancer. No comparison. TECHNIQUE: 2 site bone DEXA performed on an Hologic scanner. FINDINGS: The average BMD of the lumbar spine L1-L4 is 0.851g/cm squared with a T score of -1.8 and a Z score o f -0.9. The average total BMD of the left hip is 0.923 g/cm squared with a T score of -0.3and a Z score of +0 .3. IMPRESSION: 1. WHO classification: Osteopenia with increased fracture risk based on spine measurements. 2. WHO classification Osteopenia with increased fracture risk based on left hip measurements. RECOMMENDATION: Clinical correlation and routine screening. Definitions: BMD equal bone mineral density T score = BMD related to peak bone mass of young adult ([place] expressed an standard deviation) Z score = age-matched BMD expressed in SD World health organization (WHO) diagnostic criteria Normal T score greater than equal to 1 standard deviation Osteopenia T score between -1 and -2.4 standard deviation Osteoporosis T score -2.5 standard deviation or below. Note: BMD is not the only risk factor for fracture; also consider factors such as the patient's age, risk of falling, previous osteoporotic fracture, family history of osteoporotic fractures, current sm oker and low body weight. Z scores are not calculated if greater than 80 years of age. Signer Name: Calin Arreguin MD Signed: 11/15/2019 10:39 AM Workstation Name: [id number]
== END 2019-11-09 16:05 | disposition home or self-care (01) ==
LOC: SPVWC 16:04
PROVIDERS: ATTEND Internal Medicine Hematology & Oncology
DX: C50.211 Malignant neoplasm of upper-inner quadrant of right female breast (principal); C50.212 Malignant neoplasm of upper-inner quadrant of left female breast; C50.912 Malignant neoplasm of unspecified site of left female breast; E53.8 Deficiency of other specified B group vitamins; Z78.0 Asymptomatic menopausal state
CPT/HCPCS: 77080